=== PATIENT | female | born 1940 | race Caucasian/White ===

== ENCOUNTER 2024-01-15 00:09 | Inpatient (IN) | payer MEDICARE, OTHER ==
[~2024-01-15] VITALS: Ht 160 cm; Wt 75.7 kg
[2024-01-15 00:45] LABS: BASOPHILS % (AUTO) 0.6 % (0.0-2.0); EOSINOPHILS # (AUTO) 0.1 K/uL (0.0-0.7); EOSINOPHILS % (AUTO) 1.2 % (0.0-7.0); HEMATOCRIT 37.2 % (31.2-41.9); HEMOGLOBIN 12.4 g/dL (10.9-14.3); LYMPHOCYTES # (AUTO) 1.7 K/uL (0.8-4.8); LYMPHOCYTES % (AUTO) 23.7 % (20.5-51.5); MEAN CORPUSCULAR HEMOGLOBIN 29.4 uug (24.7-32.8); MEAN CORPUSCULAR HGB CONC 33 g/dL (32.3-35.6); MEAN CORPUSCULAR VOLUME 88.3 fL (75.5-95.3); MONOCYTES # (AUTO) 0.5 K/uL (0.1-1.30); MONOCYTES % (AUTO) 6.5 % (0.0-11.0); PLATELET COUNT (AUTO) 238 K/uL (179-408); RED BLOOD CELL COUNT(AUTO) 4.22 MIL/uL (3.63-4.92); RED CELL DISTRIBUTION WIDTH 14.9 % (12.3-17.7); WHITE BLOOD COUNT (AUTO) 7.3 K/uL (3.8-11.8)
[2024-01-15 00:46] LABS: DIFFERENTIAL COMMENT 1
[2024-01-15 00:51] LABS: CARBON DIOXIDE 31 mmol/L (21-32); CHLORIDE 100 mmol/L (98-107); CREATININE 1.6 mg/dL (0.6-1.3); GLUCOSE 194 mg/dL (74-106); POTASSIUM 4.5 mmol/L (3.5-5.1); SODIUM SERUM 138 mmol/L (136-145); UREA NITROGEN, BLOOD 38 mg/dL (7-18)
[2024-01-15 01:19] LABS: ALANINE AMINOTRANSFERASE 24 U/L (14-59); ALBUMIN 3.5 g/dL (3.4-5.0); ALKALINE PHOSPHATASE 60 U/L (50-136); ASPARTATE AMINOTRANSFERASE < 5 U/L (15-37); BILIRUBIN,TOTAL 0.3 mg/dL (0.2-1.0); NT-PRO BNP 415 pg/mL (0-125); TOTAL PROTEIN, SERUM 6.9 g/dL (6.4-8.2)
[2024-01-15 02:11] LABS: LIPASE 103 U/L (16-77)
[2024-01-15 03:31] LABS: *BILIRUBIN,URIN NEGATIVE (NEGATIVE); *BLOOD, URINE NEGATIVE (NEGATIVE); *CLARITY,URINE CLEAR (CLEAR); *COLOR,URINE YELLOW (YELLOW); *KETONES,URINE NEGATIVE (NEGATIVE); *PROTEIN,URINE NEGATIVE (NEGATIVE); *UROBILINOGEN,URINE 0.2 E.U./dl (NORMAL); LEUKOCYTE ESTERASE ,URINE NEGATIVE (NEGATIVE); NITRITE, URINE NEGATIVE (NEGATIVE); PH,URINE 8.5 (5.0-8.0); UGLUCOSE 2+ (NEGATIVE)
[2024-01-15] MEDS: levoFLOXacin 500 MG/D5W 100ML PIGGYBACK IV ONE (06:55)
[2024-01-15] MEDS ORDERED: levoFLOXacin 500 MG/D5W 100 ML ONE (06:57)
[2024-01-15 09:59] VITALS: BP 161/79; TEMP 98.6; O2SAT 96
[2024-01-15] MEDS ORDERED: HYDROCODONE/APAP 5-325MG TABLET PO PRN (12:00)
[2024-01-15] MEDS ORDERED: ACETAMINOPHEN 325 MG TABLET PO PRN (12:00)
[2024-01-15] MEDS ORDERED: ONDANSETRON 4 MG/2 ML VIAL IV PRN (12:00)
[2024-01-15] MEDS ORDERED: REMEDY ESSENTIAL ZINC PASTE 113 GM TP PRN (12:00)
[2024-01-15] MEDS ORDERED: ZOLPIDEM 5 MG TABLET PO PRN (12:00)
[2024-01-15] MEDS: ENOXAPARIN SODIUM 40 MG/0.4 ML DISP.SYRIN SQ SCH (12:48)
[2024-01-15] MEDS: IV 1/2NS 1000 ML 1,000 ML IV PRN (12:48)
[2024-01-15] MEDS ORDERED: PIPERACILLIN SODIUM/TAZOBACTAM 4.5 G in IV DEXTROSE 5% 50 ML IV SCH (14:00)
[2024-01-15] MEDS: PIPERACILLIN SODIUM/TAZOBACTAM 3.375 G in IV DEXTROSE 5% 100 ML IV SCH (14:05)
[2024-01-15 16:00] VITALS: BP 111/51; TEMP 98.3; O2SAT 96
[2024-01-15 19:42] VITALS: BP 119/60; TEMP 97.7; O2SAT 98
[2024-01-15] MEDS ORDERED: CHOL500050 PO (21:02)
[2024-01-15] MEDS ORDERED: CYAN100T44 PO (21:02)
[2024-01-15] MEDS ORDERED: PRED15SO PO (21:02)
[2024-01-15] MEDS ORDERED: PANT40TA2 PO (21:02)
[2024-01-15] MEDS ORDERED: PITA2TAB PO (21:02)
[2024-01-15] MEDS ORDERED: DAPA5TAB PO (21:02)
[2024-01-15] MEDS ORDERED: CALC-1276 PO (21:02)
[2024-01-15] MEDS ORDERED: AZIL1TAB2 PO (21:02)
[2024-01-15] MEDS ORDERED: RIVA20TA PO (21:02)
[2024-01-15] MEDS ORDERED: MAGN500C16 PO (21:02)
[2024-01-15] MEDS ORDERED: METF-494 PO (21:02)
[2024-01-15] MEDS ORDERED: ICOS1CAP PO (21:02)
[2024-01-16 05:04] VITALS: BP 132/64; TEMP 98; O2SAT 99
[2024-01-16] MEDS: PANTOPRAZOLE SODIUM 40 MG TABLET.DR PO SCH (06:11)
[2024-01-16 07:15] LABS: BASOPHILS % (AUTO) 0.6 % (0.0-2.0); DIFFERENTIAL COMMENT 0; EOSINOPHILS # (AUTO) 0.2 K/uL (0.0-0.7); EOSINOPHILS % (AUTO) 3.4 % (0.0-7.0); HEMATOCRIT 38.9 % (31.2-41.9); HEMOGLOBIN 12.8 g/dL (10.9-14.3); LYMPHOCYTES # (AUTO) 2.5 K/uL (0.8-4.8); LYMPHOCYTES % (AUTO) 41.2 % (20.5-51.5); MEAN CORPUSCULAR HEMOGLOBIN 29.1 uug (24.7-32.8); MEAN CORPUSCULAR HGB CONC 33 g/dL (32.3-35.6); MEAN CORPUSCULAR VOLUME 88.3 fL (75.5-95.3); MONOCYTES # (AUTO) 0.5 K/uL (0.1-1.30); MONOCYTES % (AUTO) 7.5 % (0.0-11.0); NEUTROPHILS # (AUTO) 2.9 K/uL (1.8-8.9); NEUTROPHILS % (AUTO) 47.3 % (38.5-71.5); PLATELET COUNT (AUTO) 249 K/uL (179-408); RED BLOOD CELL COUNT(AUTO) 4.41 MIL/uL (3.63-4.92); RED CELL DISTRIBUTION WIDTH 15.2 % (12.3-17.7); WHITE BLOOD COUNT (AUTO) 6.1 K/uL (3.8-11.8)
[2024-01-16 07:20] LABS: ALANINE AMINOTRANSFERASE 25 U/L (14-59); ALKALINE PHOSPHATASE 47 U/L (50-136); ASPARTATE AMINOTRANSFERASE 7 U/L (15-37); BILIRUBIN,TOTAL 0.6 mg/dL (0.2-1.0); CALCIUM 8.7 mg/dL (8.5-10.1); CARBON DIOXIDE 26 mmol/L (21-32); CHLORIDE 104 mmol/L (98-107); CHOLESTEROL 175 mg/dL (<200); CREATININE 1.5 mg/dL (0.6-1.3); GLUCOSE 120 mg/dL (74-106); HDL CHOLESTEROL 94 mg/dL (40-60); MAGNESIUM 2.2 mg/dL (1.8-2.4); PHOSPHOROUS 3.8 mg/dL (2.5-4.9); POTASSIUM 3.6 mmol/L (3.5-5.1); SODIUM SERUM 140 mmol/L (136-145); TOTAL PROTEIN, SERUM 6.4 g/dL (6.4-8.2); TRIGLYCERIDES 166 MG/DL (30-150); UREA NITROGEN, BLOOD 23 mg/dL (7-18)
[2024-01-16 07:21] LABS: THYROID STIMULATING HORMONE 2.174 mIU/mL (0.358-3.740)
[2024-01-16 08:05] LABS: CREATINE KINASE, TOTAL 59 U/L (26-192)
[2024-01-16 12:00] VITALS: BP 119/68; TEMP 98; O2SAT 96
[2024-01-16] MEDS ORDERED: CYAN-51 PO (13:03)
[2024-01-16] MEDS ORDERED: PRED-170 PO (13:03)
[2024-01-16 16:46] VITALS: BP 113/66; TEMP 97.6; O2SAT 97
[2024-01-16 20:10] VITALS: BP 130/76; TEMP 98.4; O2SAT 92
[2024-01-16] MEDS: MAGNESIUM HYDROXIDE 30 ML LIQUID UDC PO PRN (21:10)
[2024-01-17 04:30] VITALS: BP 140/73; TEMP 97.8; O2SAT 97
[2024-01-17 06:36] LABS: BASOPHILS % (AUTO) 0.5 % (0.0-2.0); EOSINOPHILS # (AUTO) 0.2 K/uL (0.0-0.7); EOSINOPHILS % (AUTO) 2.9 % (0.0-7.0); HEMATOCRIT 36.8 % (31.2-41.9); HEMOGLOBIN 12.2 g/dL (10.9-14.3); LYMPHOCYTES # (AUTO) 2.1 K/uL (0.8-4.8); MEAN CORPUSCULAR HEMOGLOBIN 29.3 uug (24.7-32.8); MEAN CORPUSCULAR HGB CONC 33 g/dL (32.3-35.6); MEAN CORPUSCULAR VOLUME 88.4 fL (75.5-95.3); MONOCYTES # (AUTO) 0.6 K/uL (0.1-1.30); NEUTROPHILS # (AUTO) 3.3 K/uL (1.8-8.9); NEUTROPHILS % (AUTO) 53.6 % (38.5-71.5); PLATELET COUNT (AUTO) 231 K/uL (179-408); RED BLOOD CELL COUNT(AUTO) 4.16 MIL/uL (3.63-4.92); WHITE BLOOD COUNT (AUTO) 6.2 K/uL (3.8-11.8)
[2024-01-17 06:45] LABS: DIFFERENTIAL COMMENT 1
[2024-01-17 06:50] LABS: CARBON DIOXIDE 28 mmol/L (21-32); CHLORIDE 103 mmol/L (98-107); CREATININE 1.3 mg/dL (0.6-1.3); GLUCOSE 138 mg/dL (74-106); PHOSPHOROUS 3.9 mg/dL (2.5-4.9); POTASSIUM 3.1 mmol/L (3.5-5.1); SODIUM SERUM 139 mmol/L (136-145); UREA NITROGEN, BLOOD 17 mg/dL (7-18)
[2024-01-17 08:08] LABS: PTH, INTACT 120 pg/mL (15-65)
[2024-01-17] MEDS: ENOXAPARIN SODIUM 40 MG/0.4 ML DISP.SYRIN SQ SCH (08:59)
[2024-01-17] MEDS ORDERED: ENOXAPARIN SODIUM 30 MG/0.3 ML DISP.SYRIN SQ SCH (09:00)
[2024-01-17] MEDS: POTASSIUM CHLORIDE 20 MEQ POWDER PACKET PO ONE (10:17)
[2024-01-17 11:12] LABS: A/G RATIO 1.1 (0.7-1.7); ALBUMIN 3.1 g/dL (2.9-4.4); ALPHA-1-GLOBULIN 0.2 g/dL (0.0-0.4); ALPHA-2-GLOBULIN 0.9 g/dL (0.4-1.0); BETA GLOBULIN 1.2 g/dL (0.7-1.3); GAMMA GLOBULIN 0.6 g/dL (0.4-1.8); GLOBULIN, TOTAL 2.9 g/dL (2.2-3.9); M-SPIKE Not Observed g/dL (Not Observed)
[2024-01-17 11:57] VITALS: BP 103/58; TEMP 97.9; O2SAT 98
[2024-01-17] MEDS: predniSONE 5 MG TABLET PO SCH (14:21)
[2024-01-17] MEDS: CYANOCOBALAMIN 1,000 MCG TABLET PO SCH (14:22)
[2024-01-17 15:44] LABS: THYROID STIMULATING HORMONE 0.485 mIU/mL (0.358-3.740)
[2024-01-17 15:58] VITALS: BP 120/74; TEMP 98.8; O2SAT 98
[2024-01-17] MEDS: METFORMIN XR 500 MG TAB.SR.24H PO SCH (18:22)
[2024-01-17] MEDS: RIVAROXABAN 10 MG TABLET PO SCH (18:23)
[2024-01-17 19:00] VITALS: BP 130/55; TEMP 97.4; O2SAT 97
[2024-01-17 20:26] LABS: *OCCULT BLOOD STOOL NEGATIVE (NEGATIVE)
[2024-01-17] MEDS: ATORVASTATIN 20 MG TABLET PO SCH (21:03)
[2024-01-18 06:00] VITALS: BP 123/54; TEMP 98.4; O2SAT 97
[2024-01-18 06:34] LABS: CALCIUM 7.9 mg/dL (8.5-10.1); CARBON DIOXIDE 26 mmol/L (21-32); CHLORIDE 100 mmol/L (98-107); CREATININE 1.3 mg/dL (0.6-1.3); GLUCOSE 135 mg/dL (74-106); POTASSIUM 3.3 mmol/L (3.5-5.1); SODIUM SERUM 134 mmol/L (136-145); UREA NITROGEN, BLOOD 13 mg/dL (7-18)
[2024-01-18] MEDS: CALCIUM CARB/VITAMIN D 500MG-200UNITS TABLET PO SCH (08:26)
[2024-01-18] MEDS ORDERED: PANTOPRAZOLE SODIUM 40 MG TABLET.DR PO SCH (09:00)
[2024-01-18] MEDS: POTASSIUM CHLORIDE 20 MEQ TAB.PRT.SR PO ONE (10:16)
[2024-01-18] MEDS ORDERED: METR500T PO (10:42)
[2024-01-18] MEDS ORDERED: CIPR500S2 PO (10:42)
[2024-01-18 11:47] VITALS: BP 105/56; TEMP 97.7; O2SAT 96
[2024-01-18 20:15] VITALS: BP 136/60
[2024-01-18] MEDS: CLONIDINE HCL 0.1 MG TABLET PO ONE (20:15)
== END 2024-01-18 20:15 | disposition home health service (06) | DRG 391 ==
LOC: ER 00:15 → MEDSURG3 09:15
DX: K57.32 Diverticulitis of large intestine without perforation or abscess without bleeding (principal); K85.90 Acute pancreatitis without necrosis or infection, unspecified; N17.9 Acute kidney failure, unspecified; I95.1 Orthostatic hypotension; H81.13 Benign paroxysmal vertigo, bilateral; J45.909 Unspecified asthma, uncomplicated; I11.9 Hypertensive heart disease without heart failure; I25.10 Atherosclerotic heart disease of native coronary artery without angina pectoris; G89.29 Other chronic pain; M51.369 Other intervertebral disc degeneration, lumbar region without mention of lumbar back pain or lower extremity pain; K21.9 Gastro-esophageal reflux disease without esophagitis; R53.1 Weakness; E11.42 Type 2 diabetes mellitus with diabetic polyneuropathy; Z86.711 Personal history of pulmonary embolism; Z86.718 Personal history of other venous thrombosis and embolism; Z79.01 Long term (current) use of anticoagulants; Z88.6 Allergy status to analgesic agent; Z79.84 Long term (current) use of oral hypoglycemic drugs; Z79.899 Other long term (current) drug therapy
CPT/HCPCS: 36415; 70450; 71045; 83690; 83735; 83921; 83970; 84100; 84155; 84165; 84443; 84484; 85025; 87040; G0378; J1650; J1956; J2543; J7512